=== PATIENT | female | born 1990 | race Caucasian/White ===

== ENCOUNTER 2024-05-20 19:26 | Emergency (ER) | payer OTHER ==
[~2024-05-20] VITALS: Ht 162.6 cm; Wt 86.0 kg
[~2024-05-20 19:26] MED LIST: NOCURR
[2024-05-20 19:28] VITALS: TEMP 97.9
[2024-05-20] MEDS: KETOROLAC TROMETHAMINE 30 MG/ML VIAL IVP ONE (20:21)
[2024-05-20] MEDS: DIAZEPAM 5 MG TABLET PO ONE (20:21)
[2024-05-20 21:05] VITALS: BP 115/71; PULSE 64; RESP 16; O2SAT 99
[2024-05-20] MEDS ORDERED: ACET-3385 PO (21:15)
[2024-05-20] MEDS ORDERED: OXYC5 PO (21:15)
[2024-05-20] MEDS ORDERED: IBUP-1492 PO (21:15)
[2024-05-20] MEDS ORDERED: LIDO700A15 TP (21:15)
== END 2024-05-20 21:31 | disposition home or self-care (01) ==
LOC: EMS 19:29
DX: S39.012A Strain of muscle, fascia and tendon of lower back, initial encounter (principal); R26.2 Difficulty in walking, not elsewhere classified; J45.909 Unspecified asthma, uncomplicated; X50.0XXA Overexertion from strenuous movement or load, initial encounter; Y93.89 Activity, other specified; Y92.89 Other specified places as the place of occurrence of the external cause; Y99.8 Other external cause status
CPT/HCPCS: 99283; 96374; J1885